=== PATIENT | female | born 1945 | race Caucasian/White ===

== ENCOUNTER 2019-08-03 14:01 | Outpatient (CLI) | payer MEDICARE | END 2019-08-03 23:59 | disposition home or self-care (01) | LOC: CFH 14:01 | PROVIDERS: ATTEND Internal Medicine | DX: M25.569 Pain in unspecified knee (principal); M54.2 Cervicalgia; M19.90 Unspecified osteoarthritis, unspecified site; M85.9 Disorder of bone density and structure, unspecified; E78.2 Mixed hyperlipidemia; F06.31 Mood disorder due to known physiological condition with depressive features; F06.4 Anxiety disorder due to known physiological condition; G43.909 Migraine, unspecified, not intractable, without status migrainosus; G47.00 Insomnia, unspecified; K21.9 Gastro-esophageal reflux disease without esophagitis; R06.83 Snoring; Z79.899 Other long term (current) drug therapy | CPT/HCPCS: 73562 ==